=== PATIENT | female | born 1965 | race Caucasian/White ===

== ENCOUNTER → 2021-05-04 | Day surgery (SDC) | payer OTHER ==
[~2021-05-04] VITALS: Ht 165.1 cm; Wt 74.8 kg
[~2021-05-04] MED LIST: NEXIUM20 M1 PO; PROBIOTIC250 MG PO
[2021-05-04 08:26] LABS: BUN 14 mg/dl (7-24); CHLORIDE 108 mmol/L (98-107); CREATININE 0.55 mg/dL (0.55-1.02); POTASSIUM 5.2 mmol/L (3.5-5.1); SODIUM 143 mmol/L (136-145)
[2021-05-04 08:50] VITALS: BP 126/71; BP 148/85
[2021-05-04 10:07] VITALS: BP 103/67
[2021-05-04 10:25] VITALS: BP 111/67
[2021-05-04 10:40] VITALS: BP 103/65
== END | disposition home or self-care (01) ==
LOC: SDC 05-01 11:00
PROVIDERS: ATTEND Orthopaedic Surgery
DX: G56.03 Carpal tunnel syndrome, bilateral upper limbs (principal); K21.9 Gastro-esophageal reflux disease without esophagitis; Z20.822 Contact with and (suspected) exposure to COVID-19; Z79.899 Other long term (current) drug therapy

== ENCOUNTER → 2021-08-10 | Day surgery (SDC) | payer OTHER ==
[~2021-08-10] VITALS: Ht 165.1 cm; Wt 74.8 kg
[~2021-08-10] MED LIST changes: +ACETAMINOPHEN500 M4 PO; +CLARITIN10 MG PO; +DAILY VALUE1 EACH PO
[2021-08-10 08:18] VITALS: BP 132/68
[2021-08-10 09:21] VITALS: BP 102/58
[2021-08-10 09:36] VITALS: BP 105/62
[2021-08-10 09:49] VITALS: BP 110/62
== END | disposition home or self-care (01) ==
LOC: SDC 08-07 13:15
PROVIDERS: ATTEND Orthopaedic Surgery
DX: G56.03 Carpal tunnel syndrome, bilateral upper limbs (principal); K21.9 Gastro-esophageal reflux disease without esophagitis; Z90.49 Acquired absence of other specified parts of digestive tract; Z87.891 Personal history of nicotine dependence; Z88.1 Allergy status to other antibiotic agents; Z79.899 Other long term (current) drug therapy; Z20.822 Contact with and (suspected) exposure to COVID-19